=== PATIENT | female | born 1990 | race American Indian/Alaskan Native ===

== ENCOUNTER 2017-02-21 20:07 | Emergency (ER) | payer SELFPAY ==
[2017-02-21 21:32] LABS: Bacteria,Urine 1+ /HPF (Negative); Bilirubin,Urine NEG (Negative); Blood,Urine NEG (Negative); Ketones,Urine TR mg/dL (Negative); Leukocyte Esterase,Urine TR (Negative); Mucus,Urine 3+ /HPF; Nitrite,Urine NEG (Negative)
--- NOTE | 2017-02-21 22:52 | XRay Report ---
FINAL REPORT PROCEDURE: XR ANKLE 3+V LT TECHNIQUE: LEFT ankle radiographs, AP, lateral, and oblique views. CPT 02417 HISTORY: left ankle injury COMPARISON: No prior studies are available for comparison. FINDINGS: Fracture (s) and/or Dislocation(s): None. Alignment: Normal. Joint space(s): Normal. Soft tissues: Moderate degree lateral soft tissue swelling is noted. Bone mineralization: Normal. Foreign bodies: None. Calcaneal spurring: None. IMPRESSION: No acute fracture. Soft tissue swelling..
[2017-02-22] MEDS ORDERED: FLEXERIL PO ONE (07:36)
[2017-02-22] MEDS ORDERED: MOTRIN PO ONE (07:36)
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
[2017-02-22 08:27] VITALS: BP 128/81
== END 2017-02-22 08:15 | disposition home or self-care (01) ==
LOC: ED 20:07
DX: S93.402A Sprain of unspecified ligament of left ankle, initial encounter (principal); N39.0 Urinary tract infection, site not specified; W22.8XXA Striking against or struck by other objects, initial encounter; Y93.89 Activity, other specified; Y92.89 Other specified places as the place of occurrence of the external cause; Y99.8 Other external cause status
CPT/HCPCS: 81001; 81025; 99284